=== PATIENT | female | born 1960 | race Caucasian/White ===

== ENCOUNTER 2016-09-21 16:29 | Emergency (ER) | payer OTHER, BC ==
[~2016-09-21] VITALS: Ht 162.6 cm; Wt 79.3 kg
[~2016-09-21 16:29] MED LIST: ABILIFY5 MG PO; ASPIRIN E.C.81 M1 PO; ASPIRIN81 M1 PO; ATIVAN0.5 M1 PO; ATIVAN1 MG PO; AVENTYL,PAMELOR50 MG PO; B COMPLETE1 EACH PO; CALAN80 MG PO; CINNAMON BARK500 MG PO; CYMBALTA60 MG PO; Calan PO; Cymbalta PO; DETROL LA4 MG PO; DEXADRINE PO; GEODON PO; HYDROCODON-ACE1 EAC7 PO; IMITREX100 MG PO; IMITREX4 MG/0.51 SQ; IRON PO; LEVBID0.375 MG PO; LIALDA1.2 GM PO; LOTENSIN10 MG PO; LYRICA200 MG PO; Levothroid,Synthroid PO; METFORMIN HCL1000 MG PO; METFORMIN HCL500 MG PO; METROCREAM; METROCREAM45 GM TP; MIRALAX, GLYCOL1 PK1 PO; MOBIC15 MG PO; MOBIC7.5 MG PO; MUCINEX D1 TABLET; MULTIPLE VITAM1 EACH PO; MURO-12815 ML BOTH EYES; MYCOSTATIN 100,60 ML PO; MYCOSTATIN5 ML PO; NORTRIPTYLINE H75 MG PO; PERCOCET 5/31 TABLET PO; PREMARIN0.9 MG PO; PREVACID30 MG PO; PROVENTIL,2.5 MG/0.5 IH; Prevacid PO; ROXICODONE5 MG PO; SYNTHROID137 MCG; SYNTHROID175 MCG PO; TYLENOL WITH C1 EACH PO; VENTOLIN HFA18 GM IH; VERAPAMIL HCL80 MG PO; VESICARE10 MG; VESICARE10 MG PO; VITAMIN C1000 MG PO; WELCHOL625 MG PO; ZANAFLEX4 M1; ZANAFLEX4 MG PO; ZENZEDI15 MG PO; ZETIA10 MG PO; ZOFRAN ODT4 MG PO
[2016-09-21 17:33] LABS: ADD MIUA? NO; BILIRUBIN NEGATIVE; BLOOD NEGATIVE; COLOR STRAW ((YELLOW)); GLUCOSE (STRIP) NEGATIVE; KETONES NEGATIVE; LEUKOCYTES NEGATIVE; NITRITE NEGATIVE; PROTEIN (STRIP) NEGATIVE; SPECIFIC GRAVITY 1.005 (1.000-1.030); UCUL ADDED? NO; UROBILINOGEN 0.2 MG/DL (0.2-1.0)
[2016-09-21 17:35] LABS: HEMATOCRIT 38.1 % (36.0-46.0); MCH 29.3 PG (29.0-34.0); MCHC 32.3 G/DL (30.0-36.0); MCV 90.7 FL (83-99); MEAN PLAT.VOLUME 9.2 uM^3 (9.5-12.4); PLATELET COUNT 370 K/uL (156-360); RBC DIS.WIDTH-CV 13.7 % (11.8-14.6); RBC DIS.WIDTH-SD 45.6 % (39-53); WHITE BLOOD COUNT 10.3 K/uL (4.1-10.2)
[2016-09-21 17:46] LABS: CHLORIDE 105 mEq/L (99-109); POTASSIUM 4.1 mEq/L (3.7-5.4); SODIUM 138 mEq/L (136-147)
[2016-09-21 17:47] LABS: GLUCOSE 142 mg/dL (70-99)
[2016-09-21 17:49] LABS: ANION GAP 9 MEQ/L (2-14)
[2016-09-21 17:51] LABS: GFR ESTIMATE (CALCULATED) > 59 mL/min/
[2016-09-21 17:52] LABS: UREA NITROGEN (BUN) 12 mg/dL (9-23)
[2016-09-21 17:59] LABS: TROP-I INTERPRETATION NEGATIVE; TROPONIN-I < 0.01 ng/mL (0.0-0.30)
[2016-09-21 19:22] VITALS: BP 121/89
== END 2016-09-21 19:51 | disposition home or self-care (01) ==
LOC: EME 16:29
PROVIDERS: Emergency Medicine
DX: R42 Dizziness and giddiness (principal); D72.829 Elevated white blood cell count, unspecified; E11.65 Type 2 diabetes mellitus with hyperglycemia; J40 Bronchitis, not specified as acute or chronic; J45.909 Unspecified asthma, uncomplicated; M79.7 Fibromyalgia; E78.5 Hyperlipidemia, unspecified; I10 Essential (primary) hypertension; K21.9 Gastro-esophageal reflux disease without esophagitis; E03.9 Hypothyroidism, unspecified; F90.9 Attention-deficit hyperactivity disorder, unspecified type; Z98.1 Arthrodesis status
CPT/HCPCS: 80048; 81003; 84484; 85027; 93005; 99281; 99284; J1885; J7030; Q0164

== ENCOUNTER 2017-05-22 18:44 | Emergency (ER) | payer OTHER, BC ==
[~2017-05-22] VITALS: Ht 162.6 cm; Wt 75.0 kg
[2017-05-22 19:14] LABS: HEMATOCRIT 40.4 % (36.0-46.0); HEMOGLOBIN 13.8 G/DL (11.9-15.5); MCH 31.2 PG (29.0-34.0); MCHC 34.2 G/DL (30.0-36.0); MCV 91.4 FL (83-99); PLATELET COUNT 304 K/uL (156-360); RBC DIS.WIDTH-CV 12.9 % (11.8-14.6); RBC DIS.WIDTH-SD 42.8 % (39-53); RED BLOOD COUNT 4.42 M/uL (3.80-5.20); WHITE BLOOD COUNT 10.5 K/uL (4.1-10.2)
[2017-05-22 19:23] LABS: CHLORIDE 109 mEq/L (99-109); POTASSIUM 4.1 mEq/L (3.7-5.4); SODIUM 138 mEq/L (136-147)
[2017-05-22 19:24] LABS: GLUCOSE 127 mg/dL (70-99)
[2017-05-22 19:28] LABS: CREATININE 0.9 mg/dL (0.6-1.3); GFR ESTIMATE (CALCULATED) > 59 mL/min/
[2017-05-22 19:29] LABS: UREA NITROGEN (BUN) 17 mg/dL (9-23)
[2017-05-22 19:37] LABS: TROP-I INTERPRETATION NEGATIVE; TROPONIN-I < 0.01 ng/mL (0.0-0.30)
[2017-05-22 21:23] LABS: LIPASE 46 U/L (1.0-51.0)
[2017-05-22] MEDS ORDERED: CARAFATE1 GM PO (21:25)
[2017-05-22] MEDS ORDERED: MOBIC15 MG PO (21:25)
[2017-05-22 22:19] VITALS: BP 156/113
== END 2017-05-22 22:24 | disposition home or self-care (01) ==
LOC: EME 18:44
DX: M94.0 Chondrocostal junction syndrome [Tietze] (principal); K29.70 Gastritis, unspecified, without bleeding; F43.9 Reaction to severe stress, unspecified; M79.7 Fibromyalgia; K21.9 Gastro-esophageal reflux disease without esophagitis; J45.909 Unspecified asthma, uncomplicated; E11.9 Type 2 diabetes mellitus without complications; I10 Essential (primary) hypertension; E03.9 Hypothyroidism, unspecified; E78.5 Hyperlipidemia, unspecified; G43.909 Migraine, unspecified, not intractable, without status migrainosus; F41.9 Anxiety disorder, unspecified; F32.9 Major depressive disorder, single episode, unspecified; Z98.1 Arthrodesis status; Z79.84 Long term (current) use of oral hypoglycemic drugs; Z79.82 Long term (current) use of aspirin; Z88.1 Allergy status to other antibiotic agents; Z88.8 Allergy status to other drugs, medicaments and biological substances
CPT/HCPCS: 71020; 80048; 83690; 84484; 85027; 93005; 99281; 99284

== ENCOUNTER 2017-07-15 07:01 | Emergency (ER) | payer OTHER, BC ==
[~2017-07-15] VITALS: Ht 162.6 cm; Wt 75.4 kg
[~2017-07-15 07:01] MED LIST changes: +CARAFATE1 GM PO
[2017-07-15 07:53] LABS: BASOPHIL (%) 0.4 % (0-1); EOSINOPHIL (%) 1.6 % (0-5); EOSINOPHIL COUNT 0.2 K/uL (0-0.3); HEMATOCRIT 38.2 % (36.0-46.0); HEMOGLOBIN 12.8 G/DL (11.9-15.5); IMMATURE GRANULOCYTE (%) 0.2 % (0.0-0.7); LYMPHOCYTE (%) 33.2 % (15-42); LYMPHOCYTE COUNT 3.2 K/uL (1.0-2.8); MCH 31.1 PG (29.0-34.0); MCHC 33.5 G/DL (30.0-36.0); MCV 92.9 FL (83-99); MONOCYTE (%) 9.4 % (3-12); MONOCYTE COUNT 0.9 K/uL (0-0.8); NEUTROPHIL (%) 55.2 % (45-76); NEUTROPHIL COUNT 5.3 K/uL (1.8-6.4); PLATELET COUNT 276 K/uL (156-360); RBC DIS.WIDTH-CV 12.9 % (11.8-14.6); RBC DIS.WIDTH-SD 44.1 % (39-53); RED BLOOD COUNT 4.11 M/uL (3.80-5.20); WHITE BLOOD COUNT 9.5 K/uL (4.1-10.2)
[2017-07-15 07:59] LABS: CHLORIDE 103 mEq/L (99-109); POTASSIUM 3.8 mEq/L (3.7-5.4); SODIUM 136 mEq/L (136-147)
[2017-07-15 08:01] LABS: GLUCOSE 119 mg/dL (70-99)
[2017-07-15 08:04] LABS: CREATININE 0.9 mg/dL (0.6-1.3); GFR ESTIMATE (CALCULATED) > 59 mL/min/
[2017-07-15 08:05] LABS: UREA NITROGEN (BUN) 13 mg/dL (9-23)
[2017-07-15 09:15] LABS: BILIRUBIN NEGATIVE; BLOOD NEGATIVE; GLUCOSE (STRIP) NEGATIVE; KETONES NEGATIVE; LEUKOCYTES NEGATIVE; NITRITE NEGATIVE; PROTEIN (STRIP) NEGATIVE; UROBILINOGEN 0.2 MG/DL (0.2-1.0)
[2017-07-15 09:16] LABS: APPEARANCE CLEAR ((CLEAR)); COLOR YELLOW ((YELLOW))
[2017-07-15 11:04] VITALS: BP 109/81
== END 2017-07-15 11:06 | disposition home or self-care (01) ==
LOC: EME 07:01
PROVIDERS: Emergency Medicine
DX: R10.9 Unspecified abdominal pain (principal); M79.1 Myalgia; G89.29 Other chronic pain; E11.9 Type 2 diabetes mellitus without complications; I10 Essential (primary) hypertension; E78.5 Hyperlipidemia, unspecified; E03.9 Hypothyroidism, unspecified; J45.909 Unspecified asthma, uncomplicated; K21.9 Gastro-esophageal reflux disease without esophagitis; F41.9 Anxiety disorder, unspecified; F32.9 Major depressive disorder, single episode, unspecified; F39 Unspecified mood [affective] disorder; Z79.84 Long term (current) use of oral hypoglycemic drugs; Z79.82 Long term (current) use of aspirin; Z88.1 Allergy status to other antibiotic agents; Z88.8 Allergy status to other drugs, medicaments and biological substances
CPT/HCPCS: 74176; 80048; 81003; 85025; 99281; 99284; J1885; J2270; J2405; J3010

== ENCOUNTER 2017-09-29 16:20 | Emergency (ER) | payer OTHER, BC ==
[~2017-09-29] VITALS: Ht 165.1 cm; Wt 75.9 kg
[2017-09-29] MEDS ORDERED: AUGMENTIN875 MG PO (20:19)
[2017-09-29 21:03] VITALS: BP 125/84
== END 2017-09-29 21:03 | disposition home or self-care (01) ==
LOC: EME 16:20
DX: R05 Cough (principal); J32.9 Chronic sinusitis, unspecified; R07.89 Other chest pain; R53.1 Weakness; R53.83 Other fatigue; K21.9 Gastro-esophageal reflux disease without esophagitis; J45.909 Unspecified asthma, uncomplicated; I10 Essential (primary) hypertension; E78.5 Hyperlipidemia, unspecified; E03.9 Hypothyroidism, unspecified; E11.9 Type 2 diabetes mellitus without complications; Z79.84 Long term (current) use of oral hypoglycemic drugs; Z79.82 Long term (current) use of aspirin; Z98.1 Arthrodesis status; Z90.710 Acquired absence of both cervix and uterus; Z79.890 Hormone replacement therapy
CPT/HCPCS: 71046; 94640; 99281; 99284